=== PATIENT | female | born 1980 | race Hispanic/Latino ===

== ENCOUNTER 2018-02-17 17:11 | Emergency (ER) | payer SELFPAY ==
[2018-02-17 17:33] VITALS: BP 142/82; PULSE 85; RESP 18; TEMP 98.5; O2SAT 96
--- NOTE | 2018-02-17 18:13 | C.PDOC ---
History Of Present Illness 37 y/o female presents to the ED complaining of persistent pain to the buttock and sacrum for 3 days. Patient states while ice skating she fell backwards onto her buttocks. Now complains of persistent pain to the area, worse when standing upright. No pain medication tried SENSITIZED PAPER TESTER. Patient denies any other injury. Time Seen by Provider: 02/17/18 17:57 Chief Complaint (Nursing): Back Pain History Per: Patient History/Exam Limitations: no limitations Onset/Duration Of Symptoms: Days (x 3) Current Symptoms Are (Timing): Still Present Past Medical History Reviewed: Historical Data, Nursing Documentation, Vital Signs Vital Signs: Last Vital Signs Temp 98.5 F 02/17/18 17:32 Pulse 85 02/17/18 17:32 Resp 18 02/17/18 17:32 BP 142/82 02/17/18 17:32 Pulse Ox 96 02/17/18 17:32 - Medical History PMH: Asthma Family History: States: Unknown Family Hx - Social History Hx Alcohol Use: No Hx Substance Use: No - Immunization History Hx Tetanus Toxoid Vaccination: No Hx Influenza Vaccination: No Hx Pneumococcal Vaccination: No Review Of Systems Except As Marked, All Systems Reviewed And Found Negative. Cardiovascular: Negative for: Chest Pain Respiratory: Negative for: Shortness of Breath Gastrointestinal: Negative for: Vomiting, Abdominal Pain Musculoskeletal: Positive for: Other (Pain to buttocks/sacrum) Skin: Negative for: Rash Neurological: Negative for: Weakness, Numbness, Incoordination Physical Exam - Physical Exam Appears: Non-toxic, No Acute Distress Skin: Normal Color, Warm, No Rash, No Ecchymosis Head: Atraumatic, Normacephalic Eye(s): bilateral: Normal Inspection, PERRL, EOMI Oral Mucosa: Moist Neck: Normal ROM Chest: Symmetrical Respiratory: No Accessory Muscle Use, Other (NARD) Back: No Vertebral Tenderness, Paraspinal Tenderness (Generalized tenderness to sacrum, no swelling or deformity), Other (Soft tissue tenderness to the bilateral upper buttocks) Extremity: Bilateral: Normal Color And Temperature, Normal ROM Pulses: Left Dorsalis Pedis: Normal, Right Dorsalis Pedis: Normal Neurological/Psych: Oriented x3, Normal Speech ED Course And Treatment O2 Sat by Pulse Oximetry: 96 (RA) Pulse Ox Interpretation: Normal - Other Rad SACRUM X-Ray: Interpreted by Me (NEG) Medical Decision Making Medical Decision Making: Impression: Sacral/Buttock Pain s/p trauma Plan: - Sacrum x-ray - Motrin 600 mg PO Disposition Counseled Patient/Family Regarding: Studies Performed, Diagnosis, Need For Followup, Rx Given - Disposition Referrals: [facility] [Outside] [facility] [Outside] Disposition: HOME/ ROUTINE Disposition Time: 18:30 Condition: IMPROVED Prescriptions: Naproxen 500 mg PO BID #30 tab Instructions: Low Back Pain (DC), Contusion (DC) Forms: [employer] (Spanish) - Clinical Impression Clinical Impression: Low back strain, Contusion, buttock - Scribe Statement The provider has reviewed the documentation as recorded by the Law Guzman Provider Attestation: All medical record entries made by the Law were at my direction and personally dictated by me. I have reviewed the chart and agree that the record accurately reflects my personal performance of the history, physical exam, medical decision making, and the department course for this patient. I have also personally directed, reviewed, and agree with the discharge instructions and disposition.
--- NOTE | 2018-02-18 09:03 | RAD ---
Date of service: 02/17/2018 PROCEDURE: Radiographs of the Sacrum and Coccyx HISTORY: TRAUMA COMPARISON: None available. TECHNIQUE: Frontal and lateral views of the sacrum and coccyx FINDINGS: BONES: Sacrum and coccyx unremarkable. No fracture or focal lesion. Probable bone island projecting over the left acetabulum ischium. Although not excluded loose body probably less likely. SACROILIAC JOINTS: Trace sclerotic right SI joint arthrosis. Left SI joint unremarkable. Bilateral superolateral hip joint space narrowing. Pubic symphysis within limits. Right hemipelvic phleboliths. Moderate stool retention. S OTHER FINDINGS: None. IMPRESSION: No fracture or dislocation. Other findings as above.
== END 2018-02-17 19:05 | disposition home or self-care (01) ==
LOC: C.ER 17:11
DX: S39.012A Strain of muscle, fascia and tendon of lower back, initial encounter (principal); S30.0XXA Contusion of lower back and pelvis, initial encounter; W01.0XXA Fall on same level from slipping, tripping and stumbling without subsequent striking against object, initial encounter; Y93.21 Activity, ice skating; Y92.838 Other recreation area as the place of occurrence of the external cause